=== PATIENT | male | born 1980 | race Caucasian/White ===

== ENCOUNTER 2022-08-19 20:54 | Emergency (ER) | payer OTHER, SELFPAY ==
[2022-08-19 21:06] VITALS: BP 136/80; PULSE 69; RESP 16; TEMP 36.3; O2SAT 98
--- NOTE | 2022-08-19 22:06 | ED_ITS ---
HPI - General Adult General Time Seen by Provider: 22:06 Date Seen: 08/19/22 Chief complaint: Extremity Pain/Injury, Upper Stated complaint: Back/shoulder pain Time Seen by Provider: 08/19/22 22:06 Source: patient and RN notes reviewed Mode of arrival: ambulatory Limitations: no limitations History of Present Illness HPI narrative: Patient is a very pleasant 41-year-old gentleman with a history of chronic tobacco use and recent exposure to COVID who comes to the emergency room for evaluation regarding cough and back pain. Patient notes that he had a cough and cold-like symptoms earlier this week on August 15 and . Notes that his cough is been ongoing but Mucinex as help. He denies a fever, calf tenderness or history of DVT. He notes over the past 24 hours he has more pain in his upper back. He describes pain especially with movement and coughing. He has not taken any pain medication today. 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 He does note a history of heart problems. He is post be taking aspirin daily. He states that he was supposed to get a stent but never did. His states however that he did have an angiogram and they decided that he did not need a stent that time. Movement and breathing deeply increases his discomfort. Related Data Allergies Allergy/AdvReac Type Severity Reaction Status Date / Time No Known Drug Allergies Allergy Verified 08/19/22 21:06 Review of Systems Status of ROS: Reports: 10 or more systems reviewed and unremarkable except as noted in History and below Const: Denies: fever or chills ENMT: Denies: throat pain or throat swelling Cardio: Reports: shortness of breath with exertion; Denies: chest pain, edema or swelling of feet/ankles Resp: Reports: shortness of breath, cough, wheezing and pain on inspiration GI: Denies: abdominal pain, nausea or diarrhea : Denies: painful urination Musculo: Reports: back pain Neuro: Denies: headache Allergy/Immuno: Reports: wheezing; Denies: throat swelling PFSH REPLACED BY [facility] Social History Smoking Status: Current every day smoker How often do you have a drink containing alcohol: monthly or less AUDIT-C Alcohol total score: 1 Non-prescribed substance use: denies use Exam Narrative: Exam Narrative: Patient is alert and oriented. He has missing dentition and therefore somewhat challenging to understand but speech content and interaction appears appropriate. Oral cavity with moist mucous membranes and no erythema exudate in the posterior oropharynx. Neck is supple. No lymphadenopathy. Heart with regular rate and rhythm. Lungs show decreased breath sounds in the lower lung bases right greater than left. There is wheezing noted with inspiration and expiration. Coughing appears to be productive and certainly greatly increases patient's discomfort. Abdomen soft. Lower extremity show symmetrical pedal pulses. Palpation of the back shows discomfort especially in the interscapular area and on the rhomboids left greater than right. Const: Vital Signs, click to edit/add: Vital Signs - 24 hr 08/19/22 21:06 08/19/22 23:20 08/19/22 23:46 Temperature 97.3 F L Pulse Rate [Left P ulse Oximeter] 69 71 69 Respiratory Rate 16 18 Blood Pressure [Ri ght Upper Arm] 136/80 Pulse Oximetry 98 97 97 Oxygen Delivery Me thod Room Air Room Air Room Air Documenting provider has reviewed patient's vital signs: yes Course Course Hospital Course: At this time will order chest x-ray as well as nebulizer. Ibuprofen 600 mg ordered. Reevaluation(s) Reevaluation #1: Patient notes that he had significant coughing and phlegm production after the DuoNeb and is actually feeling somewhat improved. He states that his back pain is not better but he is certainly moving and acting as if it is improved. Vital Signs Vital signs: Initial Vital Signs Temperature 97.3 F L 08/19/22 21:06 Temperature Source Temporal Artery Scan 08/19/22 21:06 Pulse Rate 69 08/19/22 21:06 Pulse Rhythm Regular 08/19/22 21:06 Respiratory Rate 16 08/19/22 21:06 Blood Pressure 136/80 08/19/22 21:06 Blood Pressure Mean 98 08/19/22 21:06 Blood Pressure Position Sitting 08/19/22 21:06 Pulse Oximetry 98 08/19/22 21:06 Oxygen Delivery Method Room Air 08/19/22 21:06 Vital Signs Temperature 97.3 F L 08/19/22 21:06 Pulse Rate 69 08/19/22 21:06 Respiratory Rate 16 08/19/22 21:06 Blood Pressure 136/80 08/19/22 21:06 Pulse Oximetry 98 08/19/22 21:06 Oxygen Delivery Method Room Air 08/19/22 21:06 Temperature 97.3 F L 08/19/22 21:06 Pulse Rate 69 08/19/22 23:46 Respiratory Rate 18 08/19/22 23:20 Blood Pressure 136/80 08/19/22 21:06 Pulse Oximetry 97 08/19/22 23:46 Oxygen Delivery Method Room Air 08/19/22 23:46 Medical Decision Making MDM Narrative Medical decision making narrative: 1. Pneumonia-patient has increased lung markings right perihilar area. He certainly has decreased lung sounds on that side. DuoNebs certainly helped bring up more phlegm. Would treat him with Z-Edgar and given his history of underlying significant tobacco use prednisone 20 mg p.o. b.i.d. x5 days. Oxygen saturations are reassuring at this time and patient has tested negative for COVID and influenza. 2. Back pain-this appears to be musculoskeletal. No evidence of compression fracture or other bony abnormality on thoracic spine films. Seems to have point tenderness and I think this is likely secondary to significant coughing. However, if patient has ongoing issues with need to return for further evaluation and potentially advanced imaging. The prednisone that he will be taking for treatment of respiratory infection will likely also help his back pain. 3. Significant tobacco use-advised on abstinence. 4. Disposition-home at this time. Patient has requested multiple times to go home and we will let him do this. I did state that the radiological over-read had not yet been returned but is likely not going to change our treatment at this time. Patient has symmetrical pedal pulses and chest pain appears to be musculoskeletal based on examination as well as reaction to coughing. Dictation done with voice recognition, and as a result, wrong word or cford-i-jmed substitutions may have occurred.? There may be errors in the script that have gone undetected.? Please consider this when interpreting information found in this chart. Lab Data Lab results reviewed: Yes I reviewed the patient's lab results Labs: Lab Results 08/19/22 Range/Units 21:25 SARS-CoV-2 (PCR) Negative SARS-CoV-2 (Negative) Influenza Type A (PCR) Negative PCR FLU A (Negative) Influenza Type B (PCR) Negative PCR FLU B (Negative) Discharge Plan Discharge Clinical Impression: Chest wall pain, Pneumonia Patient Disposition: Home, Self-Care Condition: Improved Additional Instructions: 1. Start Zithromax tonight as your antibiotic. 2. Start prednisone tomorrow as an anti-inflammatory 3. Alternate ibuprofen and Tylenol every 4 hours as needed for pain. 4. Return to the ED are for worsening symptoms. Follow Up/Referrals: Provider,Not a Local [Primary Care Provider] - Stand Alone Forms: datatracker Info Instructions
[2022-08-19 22:20] LABS: PCR FLU A Negative PCR FLU A (Negative); PCR FLU B Negative PCR FLU B (Negative)
[2022-08-19 22:23] LABS: SARS PCR* Negative SARS-CoV-2 (Negative)
--- NOTE | 2022-08-19 22:24 | CRLHL7_ITS ---
For Patients: As a result of the Century Cures Act, medical imaging exams and procedure reports are released immediately into your electronic medical record. You may view this report before your referring provider. If you have questions, please contact your health care provider. INDICATION: Chest pain. TECHNIQUE: Chest two-view. Permanently recorded images are archived. COMPARISON: None. FINDINGS: Cardiovascular and mediastinum: Heart size and vasculature are normal in caliber and appearance. Lungs and pleural spaces: The lungs are clear. No pleural effusion or pneumothorax. Bones and soft tissues: Unremarkable. IMPRESSION: No evidence of an acute pulmonary process. Dictated by Wilton Bland MD @ 08/20/2022 12:01:40 AM (Electronically Signed)
--- NOTE | 2022-08-19 22:24 | CRLHL7_ITS ---
For Patients: As a result of the Century Cures Act, medical imaging exams and procedure reports are released immediately into your electronic medical record. You may view this report before your referring provider. If you have questions, please contact your health care provider. INDICATION: Back pain. TECHNIQUE: Thoracic spine 3 view. COMPARISON: None. FINDINGS: Bones: Slight dextroconvex curvature of the thoracic spine. No acute fracture or aggressive osseous lesion. Joints: Disc spaces and facets are unremarkable. Soft tissues: Unremarkable. Dictated by Wilton Bland MD @ 08/20/2022 12:03:03 AM (Electronically Signed)
[2022-08-19] MEDS: IPRAT-ALBUT 0.5-2.5 MG/3 ML NEB 1 NEB IH (23:19)
[2022-08-19] MEDS: IBUPROFEN 200 MG TABLET 600 MG PO (23:19)
[2022-08-19 23:20] VITALS: PULSE 71; RESP 18; O2SAT 97
[2022-08-19 23:46] VITALS: PULSE 69; O2SAT 97
--- NOTE | 2022-08-21 06:38 | ED.NURSE ---
pt called about how to acquire a local provider and what the follow up appointment was. pt was informed of the information on the discharge paperwork and given additional information about how to contact the clinic for a follow up appointment. pt called on 08/21/2022 around 0630
== END 2022-08-20 00:21 | disposition home or self-care (01) ==
PROVIDERS: Emergency Provider Family Medicine
DX: R07.89 Other chest pain (principal); J18.9 Pneumonia, unspecified organism
CPT/HCPCS: 71046; 72070; 87631; 94640; 99283; 99284; A9270

== ENCOUNTER 2023-08-27 15:04 | Outpatient (CLI) | payer BC, SELFPAY ==
--- OUTSIDE RECORDS SUMMARY | 2023-09-17 11:50 | XMS_ITS | Clinical Summary ---
Author Name Unknown Organization [facility] [facility] Address [place], [place] [address] Care Team Providers Care Television Anchor Name Role Phone Pcp, No Primary Care [...] Comments Blood Pressure 138/77 04/05/2023 5:17 PM ELECTRONIC ASSEMBLY Pulse 80 04/05/2023 5:17 PM ELECTRONIC ASSEMBLY Temperature 37 ??C (98.6 ??F) 04/05/2023 5:17 PM ELECTRONIC ASSEMBLY Respiratory Rate 16 04/05/2023 5:17 PM ELECTRONIC ASSEMBLY Oxygen Saturation 97% 04/05/2023 5:17 PM ELECTRONIC ASSEMBLY Inhaled Oxygen Concentration - - Weight 83.9 kg (185 lb) 04/05/2023 5:17 PM ELECTRONIC ASSEMBLY Height - - Body Mass Index - - Plan of Treatment Health Maintenance Due Date Last Done Comments Pneumococcal series for age 6-64 (1 of 2 - PCV) 1984 Tdap 1989 Depression screening for age 12+ 1990 HIV for age 15-65 1993 BMI (ht and wt on same day) for age 18+ 1996 Hepatitis C screening for age 18-79 1996 Tetanus booster 1998 COVID-19 vaccine series (2022-24 season) Colonoscopy through age 75 09/14/2023 Lipids for age 45-75 09/14/2023 Influenza for age 9-49 12/30/2023 Care Teams Television Anchor Relationship Specialty Start Date End Date Pcp, No . PCP - General 04/14/22
== END 2023-08-27 15:05 | disposition home or self-care (01) ==
LOC: NFLDREF 09-17 11:49
PROVIDERS: Visit Provider Nurse Practitioner
DX: M25.512 Pain in left shoulder (principal); R07.9 Chest pain, unspecified; S46.819A Strain of other muscles, fascia and tendons at shoulder and upper arm level, unspecified arm, initial encounter; S46.812A Strain of other muscles, fascia and tendons at shoulder and upper arm level, left arm, initial encounter
CPT/HCPCS: 84484

== ENCOUNTER 2023-08-28 11:03 | Outpatient (CLI) | payer BC, SELFPAY ==
--- OUTSIDE RECORDS SUMMARY | 2023-08-28 11:08 | XMS_ITS | Clinical Summary ---
Author Name Unknown Organization [employer] [facility] Address [place], [place] [address] Care Team Providers Care Combination Technician Name Role Phone Pcp, No Primary Care Provider Unavailabl e Allergies No known active allergies Medications Medication Sig Dispensed Refills Start Date End Date Status albuterol HFA (PRO-AIR; VENTOLIN; PROVENTIL) 90 mcg/actuation inhalerIndications: COPD mixed type (HC) Inhale 1-2 Puffs by mouth every 4 hours if needed for Wheezing (cough). 1 Each 04/14/2022 Active benzonatate (TESSALON) 100 mg capsuleIndications: Viral URI with cough Take 1 Capsule (100 mg) by mouth 3 times daily if needed for Cough. 21 Capsule 04/14/2022 Active menthol (Biofreeze, menthol,) 10.5 % spraIndications:Lef t elbow tendonitis,Overuse injury Apply topically to affected area(s). 89 mL 04/05/2023 Active Active Problems Problem Noted Date Diagnosed Date COPD mixed type 04/14/2022 Social History Tobacco Use Types Packs/Day Years Used Date Smoking Tobacco: Every Day Cigarettes Smokeless Tobacco: Never Tobacco Cessation:Ready to Q uit: Not Asked; Counseling Given: Not Answered Social Connections Answer Date Recorded Frequency of Communication with Friends and Fami ly Not on file 04/14/2022 Sex and Gender Information Value Date Recorded Sex Assigned at Not on file Gender Identity Not on file Sexual Orientation Not on file Obstetrics History Last Filed Vital Signs Vital Sign Reading Time Taken Comments Blood Pressure 138/77 04/05/2023 5:17 PM TRIM ATTACHER Pulse 80 04/05/2023 5:17 PM TRIM ATTACHER Temperature 37 ??C (98.6 ??F) 04/05/2023 5:17 PM TRIM ATTACHER Respiratory Rate 16 04/05/2023 5:17 PM TRIM ATTACHER Oxygen Saturation 97% 04/05/2023 5:17 PM TRIM ATTACHER Inhaled Oxygen Concentration - - Weight 83.9 kg (185 lb) 04/05/2023 5:17 PM TRIM ATTACHER Height - - Body Mass Index - - Plan of Treatment Health Maintenance Due Date Last Done Comments Pneumococcal series for age 6-64 (1 of 2 - PCV) 1984 Tdap 1989 Depression screening for age 12+ 1990 HIV for age 15-65 1993 BMI (ht and wt on same day) for age 18+ 1996 Hepatitis C screening for age 18-79 1996 Tetanus booster 1998 Lipids for age 35-44 2013 COVID-19 vaccine series (2022- season) Influenza for age 9-49 12/30/2023 Care Teams Combination Technician Relationship Specialty Start Date End Date Pcp, No . PCP - General 04/14/22
== END 2023-08-28 11:04 | disposition home or self-care (01) ==
PROVIDERS: Visit Provider Family Medicine
DX: Z13.220 Encounter for screening for lipoid disorders (principal); I25.10 Atherosclerotic heart disease of native coronary artery without angina pectoris
CPT/HCPCS: 80053; 80061

== ENCOUNTER 2023-08-29 09:34 | Outpatient (RCR) | payer BC, SELFPAY | END 2023-12-27 23:59 | disposition home or self-care (01) | PROVIDERS: Visit Provider Nurse Practitioner | DX: S46.819A Strain of other muscles, fascia and tendons at shoulder and upper arm level, unspecified arm, initial encounter (principal); M25.512 Pain in left shoulder; Z51.89 Encounter for other specified aftercare; M62.81 Muscle weakness (generalized) | CPT/HCPCS: 97110; 97162 ==

== ENCOUNTER 2023-09-13 21:56 | Emergency (ER) | payer BC, SELFPAY ==
[2023-09-13] VITALS (12 sets, daily range): BP systolic 118–131; BP diastolic 71–82; PULSE 55–66; RESP 20; TEMP 37.1; O2SAT 95–98; BMI 25.6
[2023-09-13 23:05] LABS: Basophils Absolute Auto 0.02 K/uL (0.00-0.30); Basophils Percent Auto 0.3 % (0.0-3.0); Eosinophils Absolute Auto 0.36 K/uL (0.00-0.50); Eosinophils Percent Auto 5.2 % (0.0-7.0); Hematocrit 43.6 % (37.0-53.0); Hemoglobin* 14.7 gm/dL (13.5-17.5); Immature Granulocytes Abs Auto 0.03 K/uL (0.00-0.30); Immature Granulocytes Pct Auto 0.4 %; Lymphocytes Percent Auto 34.5 % (20-44); Mean Corpuscular HGB Conc 34 gm/dL (32-36); Mean Corpuscular Hemoglobin 31 pg (26-34); Mean Corpuscular Volume 91 fL (80-100); Monocytes Percent Auto 9.2 % (0.0-11.0); Neutrophils Absolute Auto 3.51 K/uL (1.7-7.0); Neutrophils Percent Auto 50.4 % (42.0-72.0); Platelet Count* 208 K/uL (140-440); RDW Coefficient of Variation % 12.2 % (11.5-15.5); Red Blood Count 4.81 m/uL (4.30-5.90); White Blood Count* 6.96 K/uL (4.50-11.00)
[2023-09-13 23:09] LABS: Potassium* 3.8 mmol/L (3.6-5.1); Sodium* 139 mmol/L (135-149)
[2023-09-13 23:12] LABS: Slide Review Reflex No
--- NOTE | 2023-09-13 23:24 | PC.NURSE ---
Pts sister Ronnie # .
--- OUTSIDE RECORDS SUMMARY | 2023-09-13 23:58 | XMS_ITS | Clinical Summary ---
Author Name Unknown Organization [employer] [facility] Address [place], [place] [address] Care Team Providers Care Wrapping Machine Helper Name Role Phone Pcp, No Primary Care [...] Comments Blood Pressure 138/77 04/05/2023 5:17 PM SUPERVISOR ORCHARD Pulse 80 04/05/2023 5:17 PM SUPERVISOR ORCHARD Temperature 37 ??C (98.6 ??F) 04/05/2023 5:17 PM SUPERVISOR ORCHARD Respiratory Rate 16 04/05/2023 5:17 PM SUPERVISOR ORCHARD Oxygen Saturation 97% 04/05/2023 5:17 PM SUPERVISOR ORCHARD Inhaled Oxygen Concentration - - Weight 83.9 kg (185 lb) 04/05/2023 5:17 PM SUPERVISOR ORCHARD Height - - Body Mass Index - [...] Influenza for age 9-49 12/30/2023 Care Teams Wrapping Machine Helper Relationship Specialty Start Date End Date Pcp, No . PCP - General 04/14/22
[2023-09-14] VITALS: PULSE 59; O2SAT 97
[2023-09-14 00:01] VITALS: BP 121/74; PULSE 58; O2SAT 97
--- NOTE | 2023-09-14 00:04 | ED_ITS ---
HPI - Chest Pain General Chief Complaint: Chest Pain Stated Complaint: Chest Pain Time Seen by Provider: 09/13/23 23:14 History of Present Illness HPI narrative: This 43-year-old male comes in reporting chest pain. He states that he had a angiogram about 2 years ago and was post have stents placed but never followed up and have this done. This was down in [place]. He comes in today reporting chest pain through most of the day. This pain is occurring while at rest. He has been into his primary physician and an arrangement is made for a follow-up appointment with concrete floater in clinic on October 03 about 2 or 3 weeks from now. He was told to come here if he was having chest pain. The patient is having some pain that is more typical of chest wall pain as it is reproducible with a deep breath or cough. He is a smoker. He is taking an aspirin daily and is also taking rosuvastatin. He is not on any blood pressure medicines. He does have risk factors for coronary artery disease including smoking and family history. He arrives here with normal vital signs. He reports pain in the left anterior chest that is reproducible when coughing or with certain maneuvers. Related Data Home Medications Medication Instructions Recorded Confirmed aspirin 81 mg capsule 81 mg PO QDAY 09/06/23 09/06/23 Previous Rx's Medication Instructions Recorded rosuvastatin 20 mg tablet 20 mg PO QDAY #90 tabs 09/10/23 Allergies Allergy/AdvReac Type Severity Reaction Status Date / Time No Known Drug Allergies Allergy Verified 09/06/23 08:15 Review of Systems Status of ROS Reports: 10 or more systems reviewed and unremarkable except as noted in History and below Narrative Constitutional: No fevers, no weight gain or loss. Eyes: No discharge. No vision changes. HENT: No congestion, no sore throat, no ear pain. Cardiovascular: No palpitations. Respiratory: No shortness of breath, no wheezes, no cough. Gastrointestinal: No abdominal pain, no vomiting, no diarrhea. Genitourinary: No dysuria, no hematuria. Musculoskeletal: Normal range of motion. Skin: No rashes, no pruritis. Neurological: No dizziness, weakness, sensory change, speech change. Endo/Heme/Allergies: No bruising or bleeding. No polydipsia. Pysch: no suicidality, no anxiety, no insomnia. All other systems reviewed and are negative. [facility] Medical History (Updated 09/14/23 @ 00:09 by Joni Decker MD) COPD (chronic obstructive pulmonary disease) ?J44.9 - Chronic obstructive pulmonary disease, unspecified (ICD-10) Family History (Updated 08/31/23 @ 08:37 by Eric Fox) Grandfather Prostate cancer Father Stroke Social History (Updated 08/28/23 @ 11:12 by Coleen Cordova~[facility], [facility]) What is your current living situation?: I presently have a place to live Problems where you live: no known problems In the past 12 months, utilities in danger of being shut off: no In past 12 months, lack of transportation kept you from medical appts, meetings, work, or getting things needed for daily living: no In the past 12 mos, have been you worried that your food would run out before you had money to buy more?: never true In the past 12 mos, the food you bought just didn't last and you didn't have money to buy more?: never true Smoking Status: Current every day smoker Do you use any of these nicotine containing products: None Second hand tobacco smoke exposure: No How often do you have a drink containing alcohol: monthly or less AUDIT-C Alcohol total score: 1 Non-prescribed substance use: denies use How often does anyone, including family, friends and others, physically hurt you : never How often does anyone, including family, friends and others, insult or talk down to you: never How often does anyone, including family, friends and others, threaten you with harm: never How often does anyone, including family, friends and others, scream or curse at you: never Little interest or pleasure in doing things: more than half the days Feeling down, depressed, or hopeless: not at all service: No Exam Narrative Exam Narrative: Constitutional: Well-developed, well-nourished, no acute distress. HEENT: Normocephalic, atraumatic. Neck: Normal range of motion. Nontender. Supple. Heart: Regular. No murmurs. Normal rate. Intact distal pulses. Lungs: Clear to auscultation. No wheezes, rhonchi, or rales. Chest discomfort is reproduced at times when coughing or with certain maneuvers. Abdomen: Normal bowel sounds. Nontender. No rebound tenderness. Genitalia: Deferred. Back: No midline tenderness. Normal range of motion. Extremities: Normal range of motion. No injury. Skin: Intact. No rash. Warm. No erythema or pallor. Neurologic: No altered sensation. No weakness. Alert and oriented. Psychiatric: No suicidality. No anxiety or depression. No insomnia. Nursing notes and vitals signs are reviewed. Const Vital Signs, click to edit/add: Vital Signs - 24 hr 09/13/23 22:08 Temperature 98.8 F Pulse Rate [Pulse Oximeter] 65 Respiratory Rate 20 Blood Pressure [Left Upper Arm] 131/80 Pulse Oximetry 95 Oxygen Delivery Method Room Air Course Vital Signs Vital signs: Initial Vital Signs Temperature 98.8 F 09/13/23 22:08 Temperature Source Temporal Artery Scan 09/13/23 22:08 Pulse Rate 65 09/13/23 22:08 Respiratory Rate 20 09/13/23 22:08 Blood Pressure 131/80 09/13/23 22:08 Blood Pressure Mean 97 09/13/23 22:08 Pulse Oximetry 95 09/13/23 22:08 Oxygen Delivery Method Room Air 09/13/23 22:08 Vital Signs Temperature 98.8 F 09/13/23 22:08 Pulse Rate 65 09/13/23 22:08 Respiratory Rate 20 09/13/23 22:08 Blood Pressure 131/80 09/13/23 22:08 Pulse Oximetry 95 09/13/23 22:08 Oxygen Delivery Method Room Air 09/13/23 22:08 Temperature 98.8 F 09/13/23 22:08 Pulse Rate 65 09/13/23 22:08 Respiratory Rate 20 09/13/23 22:08 Blood Pressure 131/80 09/13/23 22:08 Pulse Oximetry 95 09/13/23 22:08 Oxygen Delivery Method Room Air 09/13/23 22:08 MDM - Chest Pain MDM Narrative Medical decision making narrative: This patient reports a history of coronary artery disease and states that he did have an angiogram a couple years ago. He did not follow-up with recommendation have stents placed and comes in now reporting some chest pain. He continues to smoke but states that he has been cutting back. He arrives here with normal vital signs and is in no acute distress. His EKG shows normal sinus rhythm without any ST or T-wave abnormalities. Labs are acquired also and returned wi normal findings including as troponin that is at 0. The patient and his significant other seem more interested in having something done more quickly given his chest pain currently. This is in the context of neglecting follow-up over the last couple years when he was recommended to have stents placed. Today the patient's lab results and EKG are reassuring. Additionally his symptoms are more typical of chest wall pain. I did contact the concrete floater on-call, Dr. Ferris, who stated that it is reasonable to continue the current plans with a follow-up cardiology clinic visit as scheduled. The patient is okay to be discharged home and encouraged to return if worsening symptoms occur. Lab Data Labs: Lab Results 09/13/23 09/13/23 Range/Units 22:13 22:45 WBC 6.96 (4.50-11.00) K/uL RBC 4.81 (4.30-5.90) m/uL Hgb 14.7 (13.5-17.5) gm/dL Hct 43.6 (37.0-53.0) % MCV 91 (80-100) fL MCH 31 (26-34) pg MCHC 34 (32-36) gm/dL RDW Coeff of Justin 12.2 (11.5-15.5) % Plt Count 208 (140-440) K/uL Neut % (Auto) 50.4 (42.0-72.0) % Lymph % (Auto) 34.5 (20-44) % Parker % (Auto) 9.2 (0.0-11.0) % Eos % (Auto) 5.2 (0.0-7.0) % Baso % (Auto) 0.3 (0.0-3.0) % Neut # (Auto) 3.51 (1.7-7.0) K/uL Lymph # (Auto) 2.40 (0.90-2.90) K/uL Parker # (Auto) 0.60 (0.00-0.90) K/UL Eos # (Auto) 0.36 (0.00-0.50) K/uL Baso # (Auto) 0.02 (0.00-0.30) K/uL Abs Immat Gran (auto) 0.03 (0.00-0.30) K/uL Imm/Tot Granulo (auto) 0.4 % Sodium 139 (135-149) mmol/L Potassium 3.8 (3.6-5.1) mmol/L POC Troponin I 0.00 L (0.01-0.04) ng/ml ECG Data Attestation: I personally reviewed and interpreted this ECG as follows: Interpretation: Normal sinus rhythm. Rate is 70 beats per minute. There are no ST or T-wave abnormalities. Discharge Plan Discharge Clinical Impression: Acute chest wall pain, Coronary artery disease, Tobacco abuse Patient Disposition: Home, Self-Care Condition: Stable Additional Instructions: Continue current plans. Follow up with cardiology clinic appointment as schedul ed. Return if worsening symptoms occur. Prescriptions: No Action aspirin 81 mg capsule 81 mg PO QDAY rosuvastatin 20 mg tablet 20 mg PO QDAY Qty: 90 3RF Follow Up/Referrals: Stevie Scott MD [Primary Care Provider] - Stand Alone Forms: Slated Info Instructions
[2023-09-14 00:15] VITALS: PULSE 62; O2SAT 98
[2023-09-14 00:42] LABS: Chloride* 105 mmol/L (96-114)
[2023-09-14 00:45] LABS: Anion Gap 8 mEq/L (7-15); Blood Urea Nitrogen* 13 mg/dL (5-24); Carbon Dioxide* 26 mmol/L (20-32); Creatinine* 0.8 mg/dL (0.5-1.5); Est. Creatinine Clearance* 131.78; Estimated Glomerular Filt Rate 112 ml/min
[2023-09-14 00:46] LABS: Calcium* 9.2 mg/dL (8.4-10.6); Glucose* 80 mg/dL (60-115)
== END 2023-09-14 00:29 | disposition home or self-care (01) ==
PROVIDERS: Emergency Provider Emergency Medicine Emergency Medical Services; PCP Family Medicine
DX: R07.89 Other chest pain (principal); I25.10 Atherosclerotic heart disease of native coronary artery without angina pectoris; F17.210 Nicotine dependence, cigarettes, uncomplicated
CPT/HCPCS: 36415; 80048; 84484; 85025; 93005; 99284